=== PATIENT | male | born 1975 | race Caucasian/White ===

== ENCOUNTER 2018-12-29 06:16 | Emergency (ER) | payer OTHER ==
[2018-12-29] MEDS ORDERED: Fentanyl 100 MCG/2 ML VIAL ONE (06:54)
[2018-12-29 07:18] LABS: #Basophils 0.1 thou/uL (0.0-0.2); #Eosinphils 0.5 thou/uL (0.0-0.7); #Lymphocytes 1.8 thou/uL (1.20-3.40); #Monocytes 1.2 thou/uL (0.11-0.59); #Neutrophils 10.5 thou/uL (1.40-6.50); %Basophils 0.5 % (0.0-1.0); %Eosinophils 3.4 % (0.0-10.0); %Lymphocytes 12.6 % (21.0-51.0); %Monocytes 8.3 % (0.0-10.0); %Neutrophils 75.2 % (42.0-75.0); Hemoglobin 10.6 g/dL (14.0-18.0); Mean Corpuscular HGB CONC 33.3 g/dL (32.0-36.0); Mean Corpuscular Hemoglobin 28.1 pg (27.0-31.0); Mean Corpuscular Volume 84.4 fL (78.0-98.0); Platelet Count 309 thou/uL (130-400); RBC Distribution Width 13.6 % (11.5-14.5); Red Blood Cell (RBC) Count 3.77 mill/uL (4.70-6.10)
[2018-12-29 07:38] LABS: ALT (SGPT) 10 U/L (8-55); AST (SGOT) 12 U/L (5-34); Albumin 3.4 g/dL (3.5-5.0); Alkaline Phosphatase 59 U/L (40-150); Anion Gap 16 mmol/L (10-20); BUN (Urea Nitrogen) 18 mg/dL (8.9-20.6); Bilirubin, Total 0.3 mg/dL (0.2-1.2); Calc. Creatinine Clearance 0 mL/min (70-130); Calcium 8.4 mg/dL (7.8-10.44); Carbon Dioxide 24 mmol/L (22-29); Chloride 104 mmol/L (98-107); Estimated GFR-MDRD Greater than 90; Globulin 3.6 g/dL (2.4-3.5); Glucose 120 mg/dL (70-105); Potassium 3.7 mmol/L (3.5-5.1); Sodium 140 mmol/L (136-145)
[2018-12-29] MEDS ORDERED: Piperacillin/Tazobactam 3.375 GM VIAL ONE (07:51)
[2018-12-29] MEDS ORDERED: Sodium Chloride 0.9% 100 ML ONE (07:52)
[2018-12-29] MEDS ORDERED: Ondansetron PF 4 MG/2 ML Vial ONE (08:52)
[2018-12-29] MEDS ORDERED: Morphine 4 MG/ML VIAL ONE (08:52)
[2018-12-29] MEDS ORDERED: Vancomycin HCl 500 MG VIAL ONE (09:01)
[2018-12-29] MEDS ORDERED: Sodium Chloride 0.9% 250 ML 250 ML ONE (09:02)
[2018-12-29] MEDS ORDERED: Sodium Chloride 0.9% 2,000 ML ONE (10:12)
[2018-12-29] MEDS ORDERED: Sodium Chloride 0.9% 1,000 ML ONE (11:28)
== END 2018-12-29 11:36 | disposition short-term general hospital (02) ==
LOC: NAV ERS 06:16
DX: L02.212 Cutaneous abscess of back [any part, except buttock and flank] (principal); D72.829 Elevated white blood cell count, unspecified; I10 Essential (primary) hypertension; F41.9 Anxiety disorder, unspecified; F32.9 Major depressive disorder, single episode, unspecified; Z79.891 Long term (current) use of opiate analgesic; Z79.899 Other long term (current) drug therapy; Z86.73 Personal history of transient ischemic attack (TIA), and cerebral infarction without residual deficits; Z79.82 Long term (current) use of aspirin
CPT/HCPCS: 36415; 80053; 83605; 85025; 87040; 96365; 96366; 96367; 96375; J2270; J2405; J2543; J3010; J3370; J3490; J7050